=== PATIENT | female | born 1985 | race Asian ===

== ENCOUNTER 2019-05-02 03:34 | Emergency (ER) | payer MEDICAID ==
[~2019-05-02] VITALS: Ht 160 cm; Wt 63.5 kg
[2019-05-02 03:36] VITALS: Ht 160 cm; Wt 63.5 kg
[2019-05-02 05:51] VITALS: BP 124/76
== END 2019-05-02 05:52 | disposition home or self-care (01) ==
LOC: ED 03:34
DX: S62.634A Displaced fracture of distal phalanx of right ring finger, initial encounter for closed fracture (principal); S61.210A Laceration without foreign body of right index finger without damage to nail, initial encounter; W23.0XXA Caught, crushed, jammed, or pinched between moving objects, initial encounter; Y93.89 Activity, other specified; Y92.89 Other specified places as the place of occurrence of the external cause; Y99.8 Other external cause status
CPT/HCPCS: A4570; J2001; Q0092

== ENCOUNTER 2019-05-06 12:51 | Emergency (ER) | payer MEDICAID ==
[~2019-05-06] VITALS: Ht 160 cm; Wt 66.3 kg
[2019-05-06 13:05] VITALS: Ht 160 cm; Wt 66.3 kg
[2019-05-06 15:19] VITALS: BP 118/68
== END 2019-05-06 15:19 | disposition home or self-care (01) ==
LOC: ED 12:51
DX: S62.634D Displaced fracture of distal phalanx of right ring finger, subsequent encounter for fracture with routine healing (principal); S61.214D Laceration without foreign body of right ring finger without damage to nail, subsequent encounter; W23.0XXD Caught, crushed, jammed, or pinched between moving objects, subsequent encounter